=== PATIENT | female | born 1945 | race Caucasian/White ===

== ENCOUNTER → 2016-04-14 | Outpatient (CLI) | payer OTHER, MEDICARE ==
--- NOTE | 2016-04-14 17:32 | DX ---
Knee 3 Views Right History: RIGHT KNEE PAIN Comparison exam: None available. Findings: No fracture or joint effusion is identified. There is moderate narrowing of the lateral pat ellofemoral articulation compatible with chondromalacia. 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
== END ==
LOC: FLAB 13:46
PROVIDERS: ATTEND Physician Assistant
DX: M22.2X1 Patellofemoral disorders, right knee (principal)

== ENCOUNTER 2016-10-25 11:05 | Emergency (ER) | payer OTHER, MEDICARE ==
[2016-10-25 11:24] VITALS: BP 114/75; PULSE 79; RESP 16; TEMP 98.8; O2SAT 98
--- NOTE | 2016-10-25 12:32 | EDPHY ---
H & P Smoking Status: Never smoked Time Seen by Provider: 10/25/16 12:28 HPI/ROS: HPI: This is a 71-year-old female presents with: Chief Complaint: Left elbow redness Location: Left elbow Quality: Redness Duration: 2-3 days Signs and Symptoms: No warmth, no pain, no radiation, no weakness, no discharge , no decreased range of motion Timing: Gradual onset Severity: Mild Context: This is a pleasant 71-year-old female who presents with left elbow redness that has gradually worsened over the last 2-3 days. Denies any injury. No history of elbow bursitis in the past. Right hand dominant. Modifying Factors: No fjck-paq-ywbcnue medications tried and did not call PCP Comment: ROS: Eyes: No blurred vision Respiratory: No shortness of breath, no cough Cardiovascular: No chest pain Gastrointestinal: No nausea, no vomiting no diarrhea Genitourinary: No dysuria Extremities: No myalgias Neurologic: No weakness, no numbness Skin: No rashes Hematologic: No bruising, no bleeding MEDICAL/SURGICAL HISTORY: bunionectomy. generally healthy. reports taking no medications. (Marion Ny) Social History: . (Marion Ny) Constitutional: Initial Vital Signs Temperature (C) 37.1 C 10/25/16 11:22 Heart Rate 79 10/25/16 11:22 Respiratory Rate 16 10/25/16 11:22 Blood Pressure 114/75 10/25/16 11:22 O2 Sat (%) 98 10/25/16 11:22 O2 Delivery Mode Room Air Allergies/Adverse Reactions: No Known Allergies Allergy (Unverified 03/02/12 11:06) Home Medications: Medication Instructions Recorded Cefadroxil Hydrate [Cefadroxil] 500 mg PO BID #14 capsule 10/25/16 Sulfamethox/Tmp 800/160 mg 1 tab PO BID #14 tab 10/25/16 [Bactrim Ds] Medical Decision Making ED Course/Re-evaluation: Left elbow x-ray ordered to evaluate for fracture, osteophyte formation. Patient refused. No signs of an abscess; significant effusion for aspiration; septic arthritis. Patient given Ceftin and Bactrim for dual abx coverage; wrapped in Coban; and advised to immobilize until orthopedic follow up. Wound check in 2-3 days. (Marion Ny) The patient was evaluated and managed by the physician business assistant. I have reviewed this chart and I agree with the findings and plan of care as documented , as indicated by my signature. I am the secondary supervising physician. ( Fany Cruz) Differential Diagnosis: Differential includes but is not limited to bursitis, cellulitis, elbow sprain, olecranon osteophyte. (Marion Ny) Departure - Departure Disposition: Home, Routine, Self-Care Clinical Impression: Effusion of left olecranon bursa, Cellulitis of left elbow Condition: Good Instructions: Cellulitis (ED), Elbow Bursitis (ED) Additional Instructions: Take all antibiotics until completed. Wound check in 2-3 days. Referrals: Halie Nieves PA [Primary Care Provider] - 2-3 days, call for appt. (for wound check ) Pollo Fan MD [Medical Doctor] - 5-7 days, if not improved Prescriptions: Cefadroxil Hydrate [Cefadroxil] 500 mg PO BID #14 capsule Sulfamethox/Tmp 800/160 mg [Bactrim Ds] 1 tab PO BID #14 tab
== END 2016-10-25 12:43 | disposition home or self-care (01) ==
DX: M25.422 Effusion, left elbow (principal); L03.114 Cellulitis of left upper limb

== ENCOUNTER 2016-12-01 11:10 | Inpatient (IN) | payer OTHER, MEDICARE ==
[2016-12-01] MEDS ORDERED: ONDANSETRON 4 MG/2 ML VIAL IVP ONE (11:25)
[2016-12-01] MEDS ORDERED: NS 500 ML IV ONE (11:47)
--- NOTE | 2016-12-01 11:58 | CPEKG ---
Heart Rate: 72 RR Interval: 833 P-R Interval: 192 QRSD Interval: 72 QT Interval: 396 QTC Interval: 434 P Buna: 70 QRS Buna: 53 T Wave Buna: 73 EKG Severity - NORMAL ECG - EKG Impression: SINUS RHYTHM Electronically Signed By: Tolu Curry 01-Dec-2016 15:34:09
[2016-12-01 12:02] LABS: % IMMATURE GRANULYOCYTES 0.4 % (0.0-1.1); ABSOLUTE IMMATURE GRANULOCYTES 0.04 10^3/uL (0.00-0.10); ADD DIFF? NO; ADD MORPH? NO; ADD SCAN? NO; ATYPICAL LYMPHOCYTE FLAG 0 (0-99); FRAGMENT RBC FLAG 0 (0-99); HEMATOCRIT 40.9 % (38.0-47.0); HEMOGLOBIN 13.9 g/dL (12.6-16.3); LEFT SHIFT FLG 0 (0-99); LIPEMIA HEMOLYSIS FLAG 90 (0-99); MEAN CELL VOLUME 91.1 fL (81.5-99.8); MEAN PLATELET VOLUME 10.5 fL (8.7-11.7); PLATELET CLUMPS FLAG 30 (0-99); PLATELET COUNT 237 10^3/uL (150-400); RED BLOOD CELL COUNT 4.49 10^6/uL (4.18-5.33); RED CELL DISTRIBUTION WIDTH 14.3 % (11.5-15.2)
[2016-12-01 12:11] LABS: INR 0.96 (0.83-1.16); PROTIME(PATIENT) 12.7 SEC (12.0-15.0)
[2016-12-01 12:12] LABS: APTT 26.4 SEC (23.0-38.0)
[2016-12-01 12:15] LABS: ALANINE AMINOTRANSFERASE 48 IU/L (9-52); ALBUMIN 4.2 g/dL (3.5-5.0); ALKALINE PHOSPHATASE 61 IU/L (38-126); ANION GAP 13 mEq/L (8-16); ASPARTATE AMINOTRANSFERASE 29 IU/L (14-46); BILIRUBIN,TOTAL 0.6 mg/dL (0.1-1.4); BILIRUBIN-CONJUGATED 0.3 mg/dL (0.0-0.5); BILIRUBIN-UNCONJUGATED 0.3 mg/dL (0.0-1.1); CALCIUM 9.7 mg/dL (8.5-10.4); CARBON DIOXIDE 23 mEq/l (22-31); CHLORIDE 100 mEq/L (97-110); CREATININE 0.7 mg/dL (0.6-1.0); GLOMERULAR FILTRATION RATE > 60; GLUCOSE 151 mg/dL (70-100); SODIUM 136 mEq/L (134-144)
[2016-12-01 12:27] LABS: CREATINE KINASE-MB FRACTION 1.07 ng/mL (0.00-3.19); TROPONIN I < 0.012 ng/mL (0.000-0.034)
--- NOTE | 2016-12-01 12:46 | EDPHY ---
H & P Time Seen by Provider: 12/01/16 11:47 HPI/ROS: HPI History of fall. Headache and vomiting. 71-year-old female by private vehicle. This patient was with her friends last night. She reports that she was standing talking to a friend. She took a step back, lost her balance fell backwards, landed on her buttocks and then proceeded to fall backwards hitting the back of her head on a concrete surface. She reports that after that she developed nausea followed by vomiting and a dull global headache. She reports the vomiting continued through the night. No changes in vision. She denies any neck pain. No loss of sensation or weakness in her extremities. She is not on anticoagulation. ROS: Constitutional: No fever, no chills. No weakness. Eyes: No discharge. No changes in vision. ENT: No sore throat. No nasal congestion or rhinorrhea. Respiratory: No cough. No shortness of breath. Cardiac: No chest pain, no palpitations. Gastrointestinal: No abdominal pain, as above, no diarrhea. Genitourinary: No hematuria. No dysuria or increased frequency with urination. Musculoskeletal: No back pain. No neck pain. No myalgias or arthralgias. Skin: No rashes. Neurological: As above. No focal weakness or altered sensation. Past medical history: No significant past medical history. Social history: Nonsmoker. She is . Currently here by herself. Physical Exam: General Appearance: Alert, no distress. This patient is responding to questions appropriately and in full sentences. This patient appears well- hydrated and well-nourished. Head: Normocephalic atraumatic except for a mid to left-sided posterior parietal scalp abrasion with an associated shallow hematoma measuring about the the diameter of a silver dollar bony step-off or deformity noted on palpation of this area.. Face: Facial bones are stable on palpation. Eyes: Pupils equal and round and reactive to light, no pallor or injection. No lid erythema or edema. ENT, Mouth: Mucous membranes moist. Dentition is intact. No malocclusion of the jaw. No tongue lacerations or abrasions. Pharynx is clear. The bilateral nasal canals are clear. No septal hematoma. Right tympanic membrane is clear. Left tympanic membrane does show some hemotympanum. Respiratory: There are no retractions, lungs are clear to auscultation with good air movement bilaterally. Chest wall is stable to AP and lateral palpation. Cardiovascular: Regular rate and rhythm. No murmur. Gastrointestinal: Abdomen is soft and nontender, no masses, bowel sounds normal. Neurological: Motor sensory function is intact. Cranial nerves are normal. Cerebellar function intact. Skin: Warm and dry, no rashes. No lacerations, abrasions or contusions. Musculoskeletal: Neck is supple and nontender. The trachea is midline. No midline cervical, thoracic, lumbar or sacral tenderness on palpation. No flank tenderness on palpation. Extremities are symmetrical, full range of motion. All joints in the bilateral upper and bilateral lower extremities range without pain or impingement. No tenderness on palpation of the long bones in the bilateral upper and bilateral lower extremities. Psychiatric: No agitation. No depression. Database: EKG: EKG time is 11:56 a.m.; EKG shows a narrow complex normal sinus rhythm with a ventricular rate of 72. The IN, QRS, QT intervals are within normal limits. There are no ST-T wave changes indicative of ischemic or injury pattern. No evidence of right heart strain. Interpreted by me. Imaging: CT scan of head without contrast: Significant for a posterior left-sided temporal lobe linear bleed as well as anterior temporal lobe linear bleed with intraparenchymal hemorrhage diffusely. No mass effect. There is also a nondisplaced left-sided parietal skull fracture. Results were discussed with staff radiologist Dr. Tanner Barnard. Sacral coccyx x-ray series: Negative for fracture, subluxation, dislocation. Interpreted by me. Procedures: Emergency department course: IV placed. She was placed on a monitor. EKG was performed and reviewed by myself. Vital signs reviewed and are normal. Patient given 4 mg of IV Zofran initially. She was started on IV normal saline with 500 cc to be given over the next hour. 1:15 p.m., patient re-evaluated. Repeat neurologic Assessment is nonfocal. Head of bed is at 45 degrees. For her and she complains of a dull headache. She was given 0.5 mg of IV hydromorphone. I discussed the results of her CT scan as above and the need for admission. Neurosurgery was paged at this time. She also has tenderness over the lower sacrum and coccyx area. Plain films will be obtained of this area. 2:00 p.m., spoke with the physician account assistant for on-call neurosurgeon Dr. Alexander. CT scan results discussed. Dr. Alexander currently in the operating room. He will get back to us. Plan at this time is to admit primarily to Dr. Alexander. 2:10 p.m., spoke with on-call trauma surgeon Dr. Rishi Schmidt. He will consult on this patient. 3:20 p.m., patient admitted to the neurosurgical service in stable condition. There has been no change in her neurologic status. The patient has been seen by Dr. De Paz of the Trauma Service. Differential Diagnosis: The differential diagnosis on this patient includes but is not limited to skull fracture, subarachnoid hemorrhage, intraparenchymal hemorrhage. This represents a partial list of diagnoses considered. These considerations are based on history, physical exam, past history, reassessment and diagnostic testing. Smoking Status: Never smoked Constitutional: Initial Vital Signs Temperature (C) 36.7 C 12/01/16 11:10 Heart Rate 80 12/01/16 11:10 Respiratory Rate 17 12/01/16 11:10 Blood Pressure 116/75 12/01/16 11:10 O2 Sat (%) 95 12/01/16 11:10 O2 Delivery Mode Room Air Allergies/Adverse Reactions: No Known Allergies Allergy (Verified 12/01/16 15:28) Home Medications: Medication Instructions Recorded Herbals/Supplements -Info Only 1 ea PO DAILY 12/01/16 Multivitamins [Multivitamin (*)] 1 each PO DAILY 12/01/16 Propylene Glycol/Peg 400 [Systane 1 drop OP 12/01/16 Ultra 0.4-0.3% Eye Drp] diphenhydrAMINE [Benadryl 25 MG 25 mg PO HS 12/01/16 (*)] Medical Decision Making - Data Points Laboratory Results: Laboratory Results 12/01/16 11:15 12/01/16 11:15 Medications Given: Acetaminophen (Tylenol) 650 mg PO Q4HRS PRN PRN Reason: Pain, Mild/Fever, Can Take PO Stop: 05/30/17 16:04 Last Admin: 12/02/16 02:46 Dose: 650 mg Carboxymethylcellulose (Refresh Plus Drops 0.5%) 1 david [facility] Stop: 05/30/17 20:59 Last Admin: 12/01/16 21:42 Dose: Not Given Diphenhydramine HCl (Benadryl) 25 mg PO HS [facility] Stop: 05/30/17 20:59 Last Admin: 12/01/16 20:07 Dose: 25 mg Sodium Chloride (Ns) 1,000 mls @ 75 mls/hr IV CONT BRENDA Stop: 05/30/17 16:14 Last Admin: 12/01/16 18:08 Dose: 1,000 mls Morphine Sulfate (Morphine) 1 mg IVP Q4HRS PRN PRN Reason: Pain, Severe Unable to Take PO Stop: 12/11/16 16:09 Last Admin: 12/01/16 18:03 Dose: 1 mg Ondansetron HCl (Zofran) 4 mg IVP Q4HRS PRN PRN Reason: Nausea/Vomiting, Can't Take PO Stop: 05/30/17 16:07 Last Admin: 12/01/16 20:07 Dose: 4 mg Oxycodone HCl (Oxycodone Ir) 5 mg PO Q4HRS PRN PRN Reason: Pain, Severe Able to Take PO Stop: 12/11/16 16:08 Last Admin: 12/02/16 02:46 Dose: 5 mg Discontinued Medications Hydromorphone HCl (Dilaudid) 0.5 mg IVP EDNOW ONE Stop: 12/01/16 13:29 Last Admin: 12/01/16 13:37 Dose: 0.5 mg Sodium Chloride (Ns) 500 mls @ 1,000 mls/hr IV EDNOW ONE PRN Reason: Protocol Stop: 12/01/16 12:16 Last Admin: 12/01/16 11:51 Dose: Not Given Ondansetron HCl (Zofran) 4 mg IVP EDNOW ONE Stop: 12/01/16 11:26 Last Admin: 12/01/16 11:31 Dose: 4 mg Departure - Departure Disposition: [facility] Clinical Impression: Traumatic brain injury, Brain bleed, Coccyx contusion, Hematotympanum of left ear
[2016-12-01] MEDS ORDERED: HYDROmorphONE/DILAUDID 1 MG/ML INJ IVP ONE (13:28)
[2016-12-01] MEDS ORDERED: PROMETHAZINE HCL 25 MG/ML INJ IVP PRN (16:13)
[2016-12-01] MEDS ORDERED: NS 1,000 ML IV SCH (16:15)
[2016-12-01] MEDS: ONDANSETRON 4 MG/2 ML VIAL IVP PRN ×2 (16:41→20:07)
--- NOTE | 2016-12-01 17:26 | GCON ---
[f rep st] CONSULTATION DATE OF CONSULTATION: 12/01/2016 CHIEF COMPLAINT: Headache with dizziness. HISTORY OF PRESENT ILLNESS: This is an otherwise very healthy 71-year-old female who was in her usual state of health last evening. She was with a friend at which point in time, it appears as though she lost her balance. She fell backwards. She initially landed on her butt and then swung down and hit her head. At the time, she did strike it on concrete but denies any loss of consciousness. She was helped to her feet and actually was helped to her vehicle and drove home by herself that evening. She states that last night she had a headache and some dizziness, and throughout the evening had nausea with vomiting and that persisted until the morning where her called an ambulance to present here. Here in the emergency department, she has been stable. She is protecting her airway. Her breathing is normal and she has adequate circulation. She complains of a headache. The dizziness has since resolved with medication as well as most of the headache and states that other than the head pain she has no complaints. She denies having fevers or chills, and the nausea and vomiting have resolved. PAST MEDICAL HISTORY: None. PAST SURGICAL HISTORY: Bunionectomy. FAMILY HISTORY: Noncontributory. SOCIAL HISTORY: Is an artist, originally from [place]. Social alcohol. Denies illicit drug use. REVIEW OF SYSTEMS: A full 10-point review was performed and, unless explicitly stated above, was otherwise negative. PHYSICAL EXAM: VITAL SIGNS: Temperature 36.7, blood pressure 120/88, heart rate 78. She is 96% on room air. CONSTITUTIONAL: She is in no apparent distress. She is comfortable but she is dizzy. EYES: Pupils are equal, round , and reactive to light and accommodation. She has anicteric sclerae with extraocular movements intact. EARS, NOSE, MOUTH, AND THROAT: She has moist mucous membranes. She has normal hearing and her ears appear normal. CARDIOVASCULAR: She has a regular rate and rhythm without any murmurs or rubs. RESPIRATORY: She has no respiratory distress. No rales, no crepitus. No step offs. No tenderness. GASTROINTESTINAL: She has normoactive bowel sounds. It is soft, nontender, without rebound tenderness or guarding. SKIN: Warm, normal color. No rashes or abrasions. She does have a small 3 x 3 area of excoriation on her posterior occiput consistent with her mechanism of injury. MUSCULOSKELETAL: She has full muscle strength. No muscle tenderness. Normal joint range of motion. NEUROLOGIC: She is alert and oriented x3. Her cranial nerves 2 through 12 are intact. She has no recall this no weakness , no numbness. No asterixis, and her exam is largely nonfocal. PSYCHIATRIC: She is interacting appropriately and she is not anxious. LYMPH, HEME AND IMMUNOLOGIC: She has no cervical or groin lymphadenopathy. LABS: White count 10 with a left shift. H and H normal at 14 and 41. Coags normal with an INR of 0.96. Chemistry is unremarkable. IMAGING: Includes a head CT which is positive for intraparenchymal hemorrhage in the left temporal anterior and posteriorly without mass effect. No epidural or subdural hematoma. She also has a nondisplaced left parietal bone fracture with a small amount of adjacent pneumocephalus. These images were personally reviewed by me. ASSESSMENT AND PLAN: 71-year-old female, status post mechanical fall with small intraparenchymal hemorrhage and parietal bone fracture. The patient will be subsequently admitted to the hospital with frequent neurologic checks. Will discuss with Neurosurgery whether or not they want any repeat head CT scans. Anticipate that the patient will stay at least overnight for monitoring but her examination already appears to be clearing from what it was previously. We will hold deep vein thrombosis prophylaxis in the form of low molecular weight heparin given her head bleed. No home medications to restart. Does not appear to be a syncopal episode. Will continue to ask the patient whether or not she lost consciousness prior to this but does not sound like she has had issues of this in the past and does not sound like this is the case at this point in time. /[id number]/MODL MTDD
--- NOTE | 2016-12-01 18:11 | GHP ---
[f rep st] HISTORY AND PHYSICAL DATE OF ADMISSION: 12/01/2016 CHIEF COMPLAINT: Acute intraparenchymal hemorrhage in the left temporal lobe, nondisplaced left parietal bone fracture. HISTORY OF PRESENT ILLNESS: The patient is a 71-year-old female who fell last evening as she was taking a step backwards, and landed on her coccyx, and hit the back of her head. She denies any loss of consciousness. She does note that she began vomiting following the fall, and had several occurrences of vomiting last evening, as well as this morning. She had 1 glass of wine last evening, but does not feel that she was intoxicated. She presented to the emergency room today with headaches and dizziness. REVIEW OF SYSTEMS: A 10-point review of systems was reviewed and negative aside from what was mentioned in the HPI. PAST MEDICAL HISTORY: The patient denies any past medical history. SURGICAL HISTORY: The patient had a left bunion surgery in early part of 2016. The patient has had cosmetic surgery. FAMILY HISTORY: The patient's mother of breast cancer. The patient's father of cardiac disease. The patient's sister has breast cancer. 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 She does not smoke cigarettes. She does not do any drugs. MEDICATIONS: The patient does not take any prescription medications. She takes an [id number] sleep aid, as well as a multivitamin. ALLERGIES: The patient does not have any allergies to medications. PHYSICAL EXAM: HEENT: The head is normocephalic and atraumatic. Pupils are equal, round, and reactive to light. EOMI is intact. Full visual joe by confrontation. Ears, her left ear canal does have some otorrhea. NECK: Soft and supple. RESPIRATORY and CARDIAC: Deferred. ABDOMEN: Soft and nontender. GENITOURINARY and RECTAL: Deferred. NEUROLOGIC: The patient is awake and alert, oriented to name, place, location, date, time, situation. Her memory is intact for immediate, past, and current events. Speech no aphasia or dysphonia. Cranial nerves 2-12 are grossly intact. Motor, the patient has 5/5 strength in all muscle groups in bilateral upper and lower extremities to include deltoids, biceps, triceps, brachioradialis, wrist flexion and extensors , graphotype operator, intrinsic fingers, iliopsoas, quadriceps, hamstrings, plantar flexion, dorsiflexion, EHL testing. Sensation is grossly intact to light touch throughout all dermatomal distributions in bilateral lower extremities. Reflexes biceps, triceps, brachioradialis, knee jerk and ankle jerk are 2+/4. Toes are downgoing bilaterally. Theresa sign is negative. Babinski is negative. There is no evidence of clonus. VITAL SIGNS: The patient's blood pressure is 122/78, heart rate is 81, respiratory rate is 18, oxygen saturations is 96% on room air, temperature is 36.7 degrees Celsius. LABORATORY DATA: White blood cell count is 10.76, hemoglobin is 13.9, hematocrit 40.9, platelets are 237, PT is 12.7, INR is 0.96, APTT is 26.4, sodium is 136, potassium 4.0, BUN 14, creatinine 0.7, glucose is 151. DIAGNOSTICS: CT of the brain performed without contrast today, 12/01/2016, demonstrated an acute intraparenchymal hemorrhage in the left temporal lobe anteriorly and posteriorly without mass effect, as well as a nondisplaced left parietal bone fracture with minimal left parietal extra-axial pneumocephalus. CT was negative for epidural or subdural hematoma. DISCUSSION AND DECISION-MAKING: The patient is a 71-year-old female who suffered a fall last evening and struck the back of her head on the floor. She presented to the emergency room today with dizziness and vomiting, and was found to have an acute intraparenchymal hemorrhage in the left temporal lobe. She has a nondisplaced bone fracture in the left parietal region, as well as some extra-axial pneumocephalus which will not require any treatment at this time. The patient is completely neurologically intact with [place] Coma Scale of 15. We will admit her to the step-down unit for overnight observation. There are no plans to repeat any imaging at this time. We will continue to follow her neurologic exam. The patient was seen and examined by myself and Dr. Usha Alaniz in the Emergency Department at 3:00 p.m on 12/01/16. /[id number]/MODL MTDD
[2016-12-01] MEDS: ACETAMINOPHEN 325 MG TAB PO PRN (20:07)
[2016-12-01] MEDS: oxyCODONE IR 5 MG TAB PO PRN (20:07)
[2016-12-01] MEDS ORDERED: diphenhydrAMINE 25 MG CAP PO SCH (21:00)
[2016-12-01] MEDS ORDERED: CARBOXYMETHYLCELLULOSE 0.5% 0.4 ML DROPERETTE EACHEYE SCH (21:00)
[2016-12-02] MEDS: oxyCODONE IR 5 MG TAB PO PRN ×2 (02:46→12:39)
[2016-12-02] MEDS: ACETAMINOPHEN 325 MG TAB PO PRN ×2 (02:46→09:04)
--- NOTE | 2016-12-02 08:09 | NEUSURGPN ---
Assessment/Plan: A: 71 yo F s/p fall with small left acute IP hemorrhages and left parietal bone nondisplaced fx Plan: -Pain management -Neuro intact this AM -Nausea and vomiting resolved -Therapies -Likely DC to home later today -Pt D/w Dr Alaniz -Call NS with any issues/questions Subjective: Pt resting in bed, slept well. No further nausea or vomiting. Some achy pain over scalp. No numbness or tingling. Objective: AAOx3 NAD VSS CN II-XII grossly intact MAEx4 Motor 5/5 BUE/BLE +LT Urinary Catheter in Place: No - Physician Discussed Patient with : [facility] Physical Exam - Vitals, I&O, Labs I and O 12/01/16 12/02/16 12/03/16 05:59 05:59 05:59 Intake Total 1100 Balance 1100 Weight 69.4 kg Intake: Oral (ml) 300 IV Infused (ml) 800 Ns 1,000 ml @ 75 mls/hr 250 IV CONT BRENDA Rx#: [id number] Other: Intake Quantity Yes Sufficient Vital Signs Temp Pulse Resp BP Pulse Ox 36.8 C 60 13 98/61 L 94 12/02/16 07:51 12/02/16 07:51 12/02/16 07:51 12/02/16 07:51 12/02/16 07:51 ICD10 Worksheet Patient Problems: Problems Problem Status Onset Brain bleed Acute Coccyx contusion Acute Hematotympanum of left ear Acute Traumatic brain injury Acute
[2016-12-02] MEDS: ONDANSETRON 4 MG/2 ML VIAL IVP PRN (09:03)
[2016-12-02] MEDS ORDERED: FLU VACC QS 2017-18 (3YR+)/PF 0.5 ML SYR (FLUARIX QUAD) IM ONE (09:14)
[2016-12-02 12:01] VITALS: BP 104/66; PULSE 69; RESP 14; TEMP 97.9; O2SAT 92
--- NOTE | 2016-12-02 13:10 | GDS ---
[f rep st] DISCHARGE SUMMARY HOSPITAL COURSE: The patient was admitted after a fall, striking her head. A CT scan showed acute i ntraparenchymal hemorrhages in the left temporal lobe anteriorly and posteriorly, without mass effect . She was observed overnight in the intensive care unit. Consultation obtained with neurosurgery. On the day of discharge, it was felt appropriate to let the patient go home, where her will b e attending her. She will call neurosurgery for any persistent headaches or other postconcussive sym ptoms. She was given a prescription for Zofran and the pain medicine. FINAL DIAGNOSIS: Fall with concussion, subarachnoid hemorrhage. DISPOSITION: Home. FOLLOWUP: With neurosurgery p.r.n. persistent issues. /[id number]/MODL
--- NOTE | 2016-12-02 16:57 | ASDISCHSUM ---
Discharge Information Plan Status:Home with No Needs Medically Cleared to Leave:12/02/2016 Discharge Date:12/02/2016 02:10 PM CM D/C Disposition:Home, Routine, Self-Care ADT D/C Disposition:Home, Routine, Self-Care Projected Discharge Date:12/02/2016 02:10 PM Transportation at D/C:Family Discharge Delay Reason: Follow-Up Date:12/02/2016 02:10 PM Discharge Slot: Final Diagnosis: Placement Information Patient Contact Information Contact Name:MACI Relationship: Address:[address] City:[place] Alternate Phone: State/Zip Code:[place] [address] Email: Financial Information Financial Class: Primary Plan Desc:MEDICARE INPATIENT Primary Plan Number:[id number] Secondary Plan Desc:[employer]/MDR SUPPLEMENT Secondary Plan Number:[id number] Assessment Information BC CM Progress Note CM Note CM Note Notes: Pt was admitted with a TBI and intraparenchymal bleed sustained in a fall at home. PT/OT/SLT cleared. She is discharging home today with no CM needs. Date Signed: 12/02/2016 04:56 PM Electronically Signed By:MIKKI Hussein Intervention Information
== END 2016-12-02 14:10 | disposition home or self-care (01) | DRG 87 ==
LOC: EDUNIT# → F2N 17:55
PROVIDERS: ADMIT Neurological Surgery; ATTEND Neurological Surgery
DX: S06.360A Traumatic hemorrhage of cerebrum, unspecified, without loss of consciousness, initial encounter (principal); S02.0XXA Fracture of vault of skull, initial encounter for closed fracture; R40.2412 Glasgow coma scale score 13-15, at arrival to emergency department; W19.XXXA Unspecified fall, initial encounter
CPT/HCPCS: 92523-GN; 96374; 97161-GP; 97166-GO; G0008; G8978-GP-CI; G8979-GP-CI; G8980-GP-CI; G8987-GO-CJ; G8988-GO-CI; G9168-GN-CH; G9169-GN-CH; G9170-GN-CH; J1170; J2405; J2550

== ENCOUNTER 2016-12-17 13:41 | Emergency (ER) | payer OTHER, MEDICARE ==
--- NOTE | 2016-12-17 13:52 | EDPHY ---
H & P Stated Complaint: fall 2 wks ago w/skull fracture; today dizziness/vertigo s/sx Time Seen by Provider: 12/17/16 13:49 - Personal History Current Tetanus/Diphtheria Vaccine: Unsure Current Tetanus Diphtheria and Acellular Pertussis (TDAP): Unsure - Medical/Surgical History Hx Asthma: No Hx Chronic Respiratory Disease: No Hx Diabetes: No Hx Cardiac Disease: No Hx Renal Disease: No Hx Cirrhosis: No Hx Alcoholism: No Hx HIV/AIDS: No Hx Splenectomy or Spleen Trauma: No Other PMH: PMH: recent fall w/skull fracture 2 w.a. PSH: neck lift 3y.a., left bunionectomy - Social History Smoking Status: Never smoked Constitutional: Initial Vital Signs Temperature (C) 36.6 C 12/17/16 13:47 Heart Rate 75 12/17/16 13:47 Respiratory Rate 18 12/17/16 13:47 Blood Pressure 146/81 H 12/17/16 13:47 O2 Sat (%) 96 12/17/16 13:47 O2 Delivery Mode Room Air Allergies/Adverse Reactions: No Known Allergies Allergy (Verified 12/01/16 15:28) Home Medications: Medication Instructions Recorded Herbals/Supplements -Info Only 1 ea PO DAILY 12/01/16 Multivitamins [Multivitamin (*)] 1 each PO DAILY 12/01/16 Propylene Glycol/Peg 400 [Systane 1 drop OP HS 12/01/16 Ultra 0.4-0.3% Eye Drp] diphenhydrAMINE [Benadryl 25 MG 25 mg PO HS 12/01/16 (*)] Acetaminophen [Tylenol 325mg (*)] 650 mg PO Q4HRS PRN tab 12/02/16 Ondansetron HCl Pf [Zofran 4 mg 4 mg IVP Q4HRS PRN #24 vial 12/02/16 Inj (*)] oxyCODONE IR [Oxycodone Ir (*)] 5 mg PO Q4HRS PRN #12 tab 12/02/16 Medical Decision Making - Diagnostics Imaging: Discussed imaging studies w/ crew caller Radiologist, I viewed and interpreted images myself ED Course/Re-evaluation: CHIEF COMPLAINT: Dizziness HISTORY OF PRESENT ILLNESS: The patient is a 71 y/o female with a history of a traumatic brain injury arriving via EMS complaining of dizziness and a headache. She fell two weeks ago and hit her head, which resulted in a skull fracture and a subarachnoid hemorrhage. She was admitted to this hospital for the TBI. She has had increasing dizziness since the TBI. Denies paresthesias, weakness, shortness of breath, chest pain, fever or other pertinent symptoms. REVIEW OF SYSTEMS: A 10 point review of systems was performed and is negative with the exception of the elements mentioned in the history of present illness. PHYSICAL EXAM: HR, BP, O2 Sat, RR. Temp noted General Appearance: Lying in a dark room. Alert, well hydrated, appropriate, and non-toxic appearing. Head: Atraumatic without scalp tenderness or obvious injury Eyes: Pupils equal, round, reactive to light and accommodation, EOMI, no trauma , no injection. Ears: Mild left hemotympanum, no perforation, normal landmarks Nose: Atraumatic, no rhinorrhea, clear. Throat: Mucus membranes moist. Neck: Supple, nontender, no lymphadenopathy. Respiratory: No retractions, no distress, no wheezes, and no accessory muscle use. Lungs are clear to auscultation bilaterally. Cardiovascular: Regular rate and rhythm, no murmurs, rubs, or gallops. Good capillary refill all extremities. Gastrointestinal: Abdomen is soft, nontender, non-distended, no masses, no rebound, no guarding, no peritoneal signs. Musculoskeletal: Normal active ROM of all extremities, atraumatic. Neurological: Alert, appropriate, and interactive. The patient has normal DTRs and non-focal cranial nerves, motor, sensory, and cerebellar exam. Skin: No rashes, good turgor, no nodules on palpation. 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 MEDICAL DECISION MAKING: The patient is a 71 y/o female with a history of a traumatic brain injury 2 weeks ago, presenting with dizziness and a headache since the injury. On exam she has mild left hemotympanum but a normal neurologic exam. Plan on labs and a head CT. 1422: The patient's labs are normal. 1457: Spoke with Dr. Kong, radiologist, he reports that the patient's head CT is negative for acute findings. 1459: Reassessed patient and discussed laboratory and imaging findings. Return precautions provided; patient and her are comfortable with this plan. - Data Points Laboratory Results: Laboratory Results 12/17/16 13:20 12/17/16 13:20 12/17/16 12/17/16 12/17/16 13:20 13:20 13:20 WBC 6.13 10^3/uL 10^3/uL (3.80-9.50) RBC 4.75 10^6/uL 10^6/uL (4.18-5.33) Hgb 15.1 g/dL g/dL (12.6-16.3) Hct 43.9 % % (38.0-47.0) MCV 92.4 fL fL (81.5-99.8) MCH 31.8 pg pg (27.9-34.1) MCHC 34.4 g/dL g/dL (32.4-36.7) RDW 13.4 % % (11.5-15.2) Plt Count 279 10^3/uL 10^3/uL (150-400) MPV 10.0 fL fL (8.7-11.7) Neut % (Auto) 54.1 % % (39.3-74.2) Lymph % (Auto) 37.8 % % (15.0-45.0) [place] % (Auto) 7.0 % % (4.5-13.0) Eos % (Auto) 0.2 % L % (0.6-7.6) Baso % (Auto) 0.7 % % (0.3-1.7) Nucleat RBC Rel Count 0.0 % % (0.0-0.2) Absolute Neuts (auto) 3.32 10^3/uL 10^3/uL (1.70-6.50) Absolute Lymphs (auto) 2.32 10^3/uL 10^3/uL (1.00-3.00) Absolute Monos (auto) 0.43 10^3/uL 10^3/uL (0.30-0.80) Absolute Eos (auto) 0.01 10^3/uL L 10^3/uL (0.03-0.40) Absolute Basos (auto) 0.04 10^3/uL 10^3/uL (0.02-0.10) Absolute Nucleated RBC 0.00 10^3/uL 10^3/uL (0-0.01) Immature Gran % 0.2 % % (0.0-1.1) Immature Gran # 0.01 10^3/uL 10^3/uL (0.00-0.10) PT 12.5 SEC SEC (12.0-15.0) INR 0.94 (0.83-1.16) APTT 26.8 SEC SEC (23.0-38.0) Sodium 138 mEq/L mEq/L (134-144) Potassium 4.4 mEq/L mEq/L (3.5-5.2) Chloride 103 mEq/L mEq/L (97-110) Carbon Dioxide 25 mEq/l mEq/l (22-31) Anion Gap 10 mEq/L mEq/L (8-16) BUN 15 mg/dL mg/dL (7-23) Creatinine 0.9 mg/dL mg/dL (0.6-1.0) Estimated GFR > 60 Glucose 100 mg/dL mg/dL (70-100) Calcium 10.4 mg/dL mg/dL (8.5-10.4) Departure - Departure Disposition: Home, Routine, Self-Care Clinical Impression: Post concussion syndrome Condition: Good Instructions: Post Concussion Syndrome (ED) Additional Instructions: 1. Use Tylenol or ibuprofen as needed for headache. 2. Brain rest while symptoms are present. Your symptoms could last days to weeks. Avoid screen time including TV, computers, phones, and video games. It is important to avoid any activities that could put you at risk for another head injury while your symptoms are present. No bicycling, contact sports, skiing, or other risky activities. You have been referred to a head injury specialist if necessary. 3. Follow up with your primary care provider in the next 3-4 days. 4. Return to the Emergency Department if you develop a severe headache, numbness or weakness in your extremities, difficulty speaking, difficulty walking, uncontrollable vomiting, or other worsening of condition Referrals: Shelley Rodriguez MD [Medical Doctor] - As per Instructions Report Scribed for: Jaun Olivo Report Scribed by: Sujatha Martinez Date of Report: 12/17/16 Time of Report: 13:57
[2016-12-17 14:11] LABS: % IMMATURE GRANULYOCYTES 0.2 % (0.0-1.1); ABSOLUTE IMMATURE GRANULOCYTES 0.01 10^3/uL (0.00-0.10); ADD DIFF? NO; ADD MORPH? NO; ADD SCAN? NO; ATYPICAL LYMPHOCYTE FLAG 0 (0-99); FRAGMENT RBC FLAG 0 (0-99); HEMATOCRIT 43.9 % (38.0-47.0); HEMOGLOBIN 15.1 g/dL (12.6-16.3); LEFT SHIFT FLG 0 (0-99); LIPEMIA HEMOLYSIS FLAG 90 (0-99); MEAN CELL HEMOGLOBIN 31.8 pg (27.9-34.1); MEAN CELL HEMOGLOBIN CONCENTR. 34.4 g/dL (32.4-36.7); MEAN CELL VOLUME 92.4 fL (81.5-99.8); PLATELET CLUMPS FLAG 0 (0-99); PLATELET COUNT 279 10^3/uL (150-400); RED BLOOD CELL COUNT 4.75 10^6/uL (4.18-5.33); RED CELL DISTRIBUTION WIDTH 13.4 % (11.5-15.2)
[2016-12-17 14:18] LABS: APTT 26.8 SEC (23.0-38.0); INR 0.94 (0.83-1.16); PROTIME(PATIENT) 12.5 SEC (12.0-15.0)
[2016-12-17 14:19] LABS: ANION GAP 10 mEq/L (8-16); CALCIUM 10.4 mg/dL (8.5-10.4); CARBON DIOXIDE 25 mEq/l (22-31); CHLORIDE 103 mEq/L (97-110); CREATININE 0.9 mg/dL (0.6-1.0); GLOMERULAR FILTRATION RATE > 60; GLUCOSE 100 mg/dL (70-100); POTASSIUM 4.4 mEq/L (3.5-5.2); SODIUM 138 mEq/L (134-144)
[2016-12-17 15:41] VITALS: BP 115/81; PULSE 84; RESP 20; TEMP 98.2; O2SAT 95
== END 2016-12-17 15:41 | disposition home or self-care (01) ==
LOC: EDUNIT#
DX: G44.309 Post-traumatic headache, unspecified, not intractable (principal); F07.81 Postconcussional syndrome

== ENCOUNTER → 2017-01-25 | Outpatient (CLI) | payer OTHER, MEDICARE | LOC: FIMAGING 10:17 | PROVIDERS: ATTEND Physician Assistant | DX: Z12.31 Encounter for screening mammogram for malignant neoplasm of breast (principal) | CPT/HCPCS: G0202 ==